=== PATIENT | female | born 1990 | race Caucasian/White ===

== ENCOUNTER 2024-06-01 19:10 | Emergency (ER) | payer BC, SELFPAY ==
[2024-06-01 19:13] VITALS: BP 117/87
--- NOTE | 2024-06-01 19:48 | ED.GENMED ---
History of Present Illness
General
Chief Complaint: Chest Pain
Source: patient and spouse
Time Seen by Provider: 06/01/24 19:35
History of Present Illness
History of Present Illness:
This patient is a 33-year-old female who states for the past 'few days' she has had a 'constant ache' in the left anterior chest area. Sometimes this pain will also feel like 'tingling zaps' for a few seconds. There are no specific provoking or
relieving factors. She has had intermittent dyspnea without associated diaphoresis, back pain, neck pain, jaw pain, headache, dizziness. She denies leg swelling, estrogen use, recent surgery, recent immobilization. She does note that there is a
family history of DVT, and she had genetic testing which was unremarkable. She does describe a strong family history of early [place]. Patient denies other complaints.
Past History
Past History
ED Past Medical History: GERD and Other (Ovarian cysts)
ED Past Surgical History: Cholecystectomy and Orthopedic (Ankle)
Social History
Tobacco: Vaping
Alcohol: Occasional
Drug: Marijuana
Personal:
Living: with family
Employment: Employed
Family History
Family History: Other (Noncontributory)
Phy Exam
Physical Exam
Physical Exam:
GENERAL: Alert , in no apparent distress
EYE: pupils equal and reactive
NECK: Supple, no significant adenopathy.
ENT: o/p clr, mmm.
CARDIAC: Regular rate and rhythm .
LUNGS: Clear breath sounds bilaterally, no acute respiratory distress, no wheezes/rales/rhonchi
ABDOMEN: Soft, without focal tenderness, no r/g, no cvat
NEUROLOGICAL: Alert and oriented, no focal neuro deficits
SKIN: Warm and dry, skin intact.
MUSCULOSKELETAL: No edema, well perfused.
PSYCH: Normal and appropriate interaction.
Course
Orders/Labs/Results
Orders:
Orders
06/01/24 19:11
EKG [Electrocardiogram (*1)] Urgent
Reason for Study: Chest Pain
EKG- Treatment ONCE
06/01/24 19:48
Cardiac Monitoring- Treatment ONCE
06/01/24 20:08
Complete Blood Count/No Diff Urgent
Comprehensive Metabolic Panel Urgent
D-Dimer Urgent
Troponin I Urgent
06/01/24 20:57
Ketorolac [Toradol] 15 mg IV NOW STA
06/01/24 23:20
Troponin I Urgent
Abnormal Lab Results
06/01/24
20:08
RBC 4.11 L 10^6/uL
(4.20-5.40)
Hct 36.7 L %
(37.0-47.0)
Glucose 120 H mg/dl
(70-99)
06/01/24 20:08
06/01/24 20:08
Vital Signs
Initial and Last Documented VS:
Initial Vital Signs
Temp Pulse Resp BP Pulse Ox
98.2 F 96 16 117/87 98
06/01/24 19:13 06/01/24 19:13 06/01/24 19:13 06/01/24 19:13 06/01/24 19:13
Last Documented Vital Signs
Temp Pulse Resp BP Pulse Ox
98.2 F 79 15 111/68 99
06/01/24 19:13 06/01/24 23:19 06/01/24 23:19 06/01/24 23:18 06/01/24 23:19
Update Note
Update Note:
Patient presents to the Emergency Department with ___chest pain
Number and Complexity of Problems Addressed at the Encounter
� Chronic conditions affecting care:
� Acute Exacerbation and/or Progression of Chronic Illness:
� Differential Diagnosis includes: But not limited to musculoskeletal pain, ACS, PE, pleurisy, etc. etc.
Amount and/or Complexity of Data to be Reviewed and Analyzed
� I performed an independent evaluation of and my interpretation is:
EKG: Read by me, sinus tachycardia at 103, no acute ischemia
CT:
Xrays:
Laboratory Studies: Unremarkable, troponin x 2 unremarkable, D-dimer unremarkable
Other:
� Review of other/old records reveals:
� Clinical information was obtained by an independent historian: who is bedside
� Prescriptions/Medications Considered but not given:
� Further testing considered but not performed:
Risk of Complications and/or Morbidity or Mortality of Patient Management
� Social determinants of health affecting care:
� Discussion with other providers (PCP, Hospitalists, Consultants, etc):
� Escalation of care including admission/observation vs risk of discharge considered: Discussed with patient importance of follow-up and reasons return to the ER.
ED Attending Note
-
Portions of this chart may have been created with voice recognition software.� Occasional wrong word or��sound alike� substitutions may have occurred due to the inherent limitations of voice recognition software.
Discharge Plan
Departure
Patient Disposition: Home (Routine Discharge)
Date of Disposition: 06/02/24
Time of Disposition: 00:36
Patient with high blood pressure during this ER visit?: Yes
Condition: Good
Discharge Problem:
Chest pain
Instructions: Chest Pain PCP Follow Up, BLOOD PRESSURE
Prescriptions:
No Action
ibuprofen 800 mg tablet
800 mg PO Q8H PRN (Reason: pain) Qty: 30 0RF
Referrals:
ADALID JARAMILLO [Other]
Activity Restrictions/Additional Instructions:
PLEASE SEE YOUR DOCTOR IN CLOSE FOLLOW UP. IF YOU DEVELOP RECURRENT/NEW/WORSENING PAIN, ANY TROUBLE BREATHING, FEVER, VOMITING, DIZZINESS, OR OTHER WORRISOME SIGNS, GO TO THE ER IMMEDIATELY!
Interventions
Interventions:
*Risk Screen - Suicide Last Done: 06/01/24 22:00
*General Assessment Last Done: 06/01/24 22:00
*Neglect/Abuse Screening Last Done: 06/01/24 22:00
*ED COVID-19 Vaccine History Last Done: 06/01/24 22:00
ED- Cardiac Assessment Last Done: 06/01/24 22:56
Discharge Date and Time
Print Language: MICRONESIAN
[2024-06-01 20:14] LABS: Hematocrit 36.7 % (37.0-47.0); Hemoglobin 12.6 g/dL (12.0-16.0); Mean Corp Hgb Conc. 34.3 g/dL (33.0-37.0); Mean Corpuscular Hgb 30.7 pg (27.0-31.0); Mean Corpuscular Volume 89.3 fL (81.0-99.0); Mean Platelet Volume 9.5 fL (7.4-10.4); Platelet Count 255 10^3/uL (130-400); Red Blood Cell Count 4.11 10^6/uL (4.20-5.40); Red Cell Dist. Width 12.5 % (11.5-14.5)
[2024-06-01 20:27] LABS: D-Dimer 0.29 ug/mlFEU (0.00-0.50)
[2024-06-01 20:30] LABS: ALT (SGPT) 12 U/L (0-35); AST (SGOT) 16 U/L (14-36); Albumin 4.6 g/dl (3.5-5.0); Alkaline Phosphatase 47 U/L (38-126); Blood Urea Nitrogen 10 mg/dl (7-17); Calcium 9.4 mg/dl (8.4-10.2); Carbon Dioxide 27 mmol/L (22-30); Chloride 102 mmol/L (98-107); Glucose 120 mg/dl (70-99); Potassium 3.7 mmol/L (3.5-5.1); Sodium 136 mmol/L (135-145); Total Bilirubin 0.7 mg/dl (0.2-1.3); Total Protein 6.8 g/dl (6.3-8.2); eGFR > 60.00
[2024-06-01 20:38] LABS: Troponin I < 0.012 ng/ml
[2024-06-01] MEDS: TORADOL 15 MG IV (21:11)
[2024-06-01 23:18] VITALS: BP 111/68
[2024-06-02] VITALS: BP 118/66
[2024-06-02 00:11] LABS: Troponin I < 0.012 ng/ml
[2024-06-02 00:45] VITALS: BP 118/66
== END 2024-06-02 00:46 | disposition home or self-care (01) ==
LOC: EMR 19:10
PROVIDERS: EMERGENCY PHYSICIAN Emergency Medicine
DX: R07.89 Other chest pain (principal); R20.2 Paresthesia of skin; K21.9 Gastro-esophageal reflux disease without esophagitis; F17.290 Nicotine dependence, other tobacco product, uncomplicated; Z82.49 Family history of ischemic heart disease and other diseases of the circulatory system; Z90.49 Acquired absence of other specified parts of digestive tract
CPT/HCPCS: 99283; 96374; 80053; 84484; 85027; 85379; 93005